=== PATIENT | female | born 1965 | race Hispanic/Latino ===

== ENCOUNTER 2017-10-05 08:41 | Emergency (ER) | payer OTHER ==
[2017-10-05 08:49] VITALS: BMI 32.1
[2017-10-05 08:51] VITALS: RESP 17; TEMP 96; O2SAT 96
[2017-10-05] MEDS ORDERED: Sodium Chloride 0.9% 1,000 ML IV STA (09:08)
[2017-10-05] MEDS ORDERED: Labetalol 5 mg/ml Inj 20ML IVP STA (09:08)
--- NOTE | 2017-10-05 09:26 | ED PDOC ---
HPI: General Adult Time Seen by Provider: 10/05/17 09:07 Chief Complaint (Nursing): GI Problem Chief Complaint (Provider): Dizziness, nausea, vomiting History Per: Patient History/Exam Limitations: no limitations Onset/Duration Of Symptoms: Mins Have you had recent travel within the past 21 days to any of the following countries: [place], [place], [place] or [place]?: No Current Symptoms Are (Timing): Still Present Additional History Per: Patient Additional Complaint(s): 52yo female with history of hypertension, vertigo, and hypercholesterolemia, brought to ED for evaluation of acute dizziness, nausea and vomiting. Patient states she was commuting from [place] and [place] [employer] [place], she became acutely dizzy, nauseous and had episodes of vomiting. [employer] police was summoned and patient was brought to ER by them. Patient states current symptoms are consistent with prior episodes of acute vertigo, with last episode in December. Patient states she normally responds to meclizine and valium. Of note, patient has not taken her hypertension medications today. She states she is dealing with significant stress due to a 2 hour commute each direction. She currently denies any recent illnesses, chest pain or incoordination. She states her dizziness is like a room-spinning sensation and worsens with moving her head. She has no other medical complaints. Past Medical History Reviewed: Historical Data, Nursing Documentation, Vital Signs Vital Signs: Last Vital Signs Temp 96 F L 10/05/17 08:49 Pulse 89 10/05/17 13:18 Resp 17 10/05/17 08:49 BP 149/98 H 10/05/17 13:18 Pulse Ox 96 10/05/17 09:33 - Medical History PMH: HTN, Hypercholesterolemia Other PMH: Vertigo - Surgical History Surgical History: No Surg Hx - Family History Family History: States: No Known Family Hx - Home Medications Home Medications: Ambulatory Orders Medication Instructions Recorded Diazepam [Valium] 2 mg PO BID PRN #8 tablet 10/05/17 Meclizine [Meclizine*] 25 mg PO Q6 #30 tab 10/05/17 - Allergies Allergies/Adverse Reactions: Allergies Allergy/AdvReac Type Severity Reaction Status Date / Time No Known Allergies Allergy Verified 10/05/17 08:57 Review of Systems ROS Statement: Except As Marked, All Systems Reviewed And Found Negative Cardiovascular: Negative for: Chest Pain Gastrointestinal: Positive for: Nausea, Vomiting Neurological: Positive for: Dizziness. Negative for: Headache Physical Exam - Reviewed Nursing Documentation Reviewed: Yes Vital Signs Reviewed: Yes - Physical Exam Appears: Positive for: Non-toxic Head Exam: Positive for: ATRAUMATIC, NORMAL INSPECTION, NORMOCEPHALIC Skin: Positive for: Normal Color Eye Exam: Positive for: EOMI, PERRL Neck: Positive for: Normal, Supple Cardiovascular/Chest: Positive for: Regular Rate, Rhythm Respiratory: Positive for: Normal Breath Sounds. Negative for: Respiratory Distress Neurologic/Psych: Positive for: Alert, Oriented, Other (dizziness replicated with head turning). Negative for: Motor/Sensory Deficits - Laboratory Results Result Diagrams: 10/05/17 09:46 10/05/17 09:46 - ECG ECG: Positive for: Interpreted By Me, Viewed By Me ECG Rhythm: Positive for: Sinus Rhythm. Negative for: ST/T Changes Interpretation Of ECG: No prior EKG for comparison. Rate: 60 O2 Sat by Pulse Oximetry: 96 (RA) Pulse Ox Interpretation: Normal Medical Decision Making Medical Decision Making: Impression: Acute vertigo with hypertension urgency given elevated blood pressure Plan: -- Labs -- IV Fluids -- Labetalol 10mg IV -- Meclizine 25mg PO -- Valium 2mg PO -- Zofran 4mg IV Reassess Time: 1345 Upon re-evaluation, patient reports feeling much better. She deneis any nausea or dizziness. Patient's blood pressure has improved as well. Patient's family is in ER and will take her home. She has follow up scheduled with PCP in [place]. Stable for discharge home. Scribe Attestation: Documented by Pura Arango acting as a scribe for Gio Aurora, DO. Provider Attestation: All medical record entries made by the Gayibe were at my direction and personally dictated by me. I have reviewed the chart and agree that the record accurately reflects my personal performance of the history, physical exam, medical decision making, and the department course for this patient. I have also personally directed, reviewed, and agree with the discharge instructions and disposition. Disposition - Clinical Impression Clinical Impression: Acute onset of severe vertigo - Disposition Disposition: Routine/Home Disposition Time: 13:46 Condition: STABLE Additional Instructions: Followup with your doctor for further testing. Return to ER for any new or worsening symptoms. Prescriptions: Diazepam [Valium] 2 mg PO BID PRN #8 tablet PRN Reason: Dizziness Meclizine [Meclizine*] 25 mg PO Q6 #30 tab Instructions: Vertigo (ED), Dizziness (ED) Forms: [facility] ([facility]wana)
[2017-10-05 09:50] LABS: BASO % 0.7 % (0.0-2.0); EOS # 0.2 K/uL (0.0-0.7); EOS % 3.5 % (0.0-4.0); HEMOGLOBIN 13.6 g/dL (12.0-16.0); LYMPH # 1.5 K/uL (1.0-4.3); LYMPH % 22.5 % (20.0-40.0); MEAN CELL VOLUME 83.7 fl (81.0-99.0); MEAN CORPUSCULAR HGB CONC 33.4 g/dL (33.0-37.0); MEAN PLATELET VOLUME 8.2 fl (7.2-11.7); MONO # 0.3 K/uL (0.0-0.8); MONO % 4.3 % (0.0-10.0); NEUT # 4.7 K/uL (1.8-7.0); NRBC % 0.1 % (0.0-0.0); RBC 4.86 Mil/uL (3.80-5.20); RED CELL DISTRIBUTION WIDTH 13.1 % (11.5-14.5); WHITE BLOOD COUNT 6.8 K/uL (4.8-10.8)
[2017-10-05 10:01] LABS: ALB/GLOB RATIO 1.5 (1.0-2.1); ALBUMIN 4.7 g/dL (3.5-5.0); ALT/SGPT 38 U/L (9-52); AST/SGOT 21 U/L (14-36); BLOOD UREA NITROGEN 20 mg/dl (7-17); CALCIUM 9.3 mg/dL (8.4-10.2); GFR AFRICAN-AMERICAN > 60; GFR NON-AFRICAN AMERICAN > 60
[2017-10-05] MEDS ORDERED: Potassium Chloride 20 mEq ER Tab PO ONE (13:09)
[2017-10-05 13:19] VITALS: BP 149/98
[2017-10-05 13:46] VITALS: PULSE 60
--- NOTE | 2017-10-06 18:25 | CARD ---
APPROVED REPORT EKG Measurement Heart [id number] <Conclusion> Normal sinus rhythm with sinus arrhythmia Minimal voltage criteria for LVH, may be normal variant Nonspecific ST and T wave abnormality Abnormal ECG
== END 2017-10-05 16:00 | disposition home or self-care (01) ==
LOC: H.ER 08:41
DX: R42 Dizziness and giddiness (principal); I10 Essential (primary) hypertension
CPT/HCPCS: 80053; 84484; 85025; 93005; 96374; 99282; J2405; J7040